=== PATIENT | female | born 1990 | race African-American/Black ===

== ENCOUNTER 2017-06-11 15:22 | Emergency (ER) | payer OTHER ==
[2017-06-11 15:36] LABS: URINE HCG POC HCG POSITIVE (Negative)
[2017-06-11 15:59] LABS: ADD MAN DIFF? NO
[2017-06-11] MEDS ORDERED: MORPHINE SULFATE 2 MG/ML DISP.SYRIN. IV/SQ (16:00)
[2017-06-11 16:07] LABS: BASO # 0.1 x10^3/uL (0.0-0.2); BASO % 1 % (0-3); EOS % 0 % (0-3); HEMATOCRIT 35.8 % (36.0-47.0); HEMOGLOBIN 11.8 g/dL (12.0-15.5); LYMPH # 2.3 x10^3/uL (1.0-4.8); LYMPH % 18 % (24-48); MEAN CORPUSCULAR HEMOGLOBIN 28 pg (25-35); MEAN CORPUSCULAR HGB CONC 33 g/dL (31-37); MEAN CORPUSCULAR VOLUME 85 fL (79-100); MONO % 7 % (0-9); NEUT % 74 % (31-73); PLATELET COUNT 270 x10^3/uL (140-400); RED BLOOD COUNT 4.23 x10^6/uL (3.50-5.40); RED CELL DISTRIBUTION WIDTH 16.3 % (11.5-14.5); WHITE BLOOD COUNT 12.9 x10^3/uL (4.0-11.0)
[2017-06-11 16:09] LABS: BILIRUBIN,URINE NEGATIVE (NEG); GLUCOSE,URINE NEGATIVE (NEG); NITRITE,URINE NEGATIVE (NEG); PROTEIN,URINE NEGATIVE (NEG-TRACE); UROBILINOGEN,URINE 0.2 mg/dL (0.2 mg/dL)
[2017-06-11 16:14] LABS: BACTERIA,URINE MODERATE /HPF (0-FEW); RBC,URINE 0 /HPF (0-2); SQUAMOUS EPITHELIAL CELL,UR MANY /LPF; WBC,URINE RARE /HPF (0-4)
[2017-06-11 16:16] LABS: PARTIAL THROMBOPLASTIN TIME 26 SEC (24-38)
[2017-06-11 16:18] LABS: ANION GAP 12 (6-14); BLOOD UREA NITROGEN 4 mg/dL (7-20); CALCIUM 8.8 mg/dL (8.5-10.1); CARBON DIOXIDE 27 mmol/L (21-32); CHLORIDE 98 mmol/L (98-107); CREATININE 0.6 mg/dL (0.6-1.0); GFR 147.4; GLUCOSE 85 mg/dL (70-99); POTASSIUM 3.8 mmol/L (3.5-5.1); SODIUM 137 mmol/L (136-145)
[2017-06-11] MEDS: IV NORMAL SALINE 1000ML BAG 1,000 ML IV (16:20)
[2017-06-11] MEDS: ONDANSETRON PF 4 MG/2 ML VIAL. IV (16:21)
[2017-06-11 16:23] LABS: ALBUMIN 3.8 g/dL (3.4-5.0); ALK PHOS 51 U/L (46-116); ALT (SGPT) 19 U/L (14-59); AST (SGOT) 17 U/L (15-37); DIRECT BILIRUBIN 0.1 mg/dL (0.0-0.2); TOTAL BILIRUBIN 0.3 mg/dL (0.2-1.0); TOTAL PROTEIN 8.4 g/dL (6.4-8.2)
[2017-06-11 16:32] LABS: CREATINE KINASE 97 U/L (26-192)
[2017-06-11 16:33] LABS: CKMB INDEX 0.5 % (0-4); CKMB MASS < 0.5 ng/mL (0.0-3.6)
== END 2017-06-11 18:10 | disposition home or self-care (01) ==
LOC: ER 15:22
DX: O21.9 Vomiting of pregnancy, unspecified (principal); O99.611 Diseases of the digestive system complicating pregnancy, first trimester; R10.13 Epigastric pain; R10.31 Right lower quadrant pain; Z3A.08 8 weeks gestation of pregnancy; Z88.1 Allergy status to other antibiotic agents
CPT/HCPCS: 36415; 76801; 80048; 80076; 81001; 81025; 82553; 83690; 84702; 85025; 85610; 85730; 87086; 96361; 96374; 99285-25; J2405; J7030

== ENCOUNTER → 2017-08-14 | Outpatient (CLI) | payer OTHER | END | disposition home or self-care (01) | LOC: US 15:39 | DX: O09.92 Supervision of high risk pregnancy, unspecified, second trimester (principal); O26.842 Uterine size-date discrepancy, second trimester; Z3A.18 18 weeks gestation of pregnancy | CPT/HCPCS: 76805 ==

== ENCOUNTER → 2017-09-24 | Outpatient (CLI) | payer OTHER | END | disposition home or self-care (01) | LOC: ECHO 13:02 | DX: O26.892 Other specified pregnancy related conditions, second trimester (principal); R06.00 Dyspnea, unspecified; Z3A.24 24 weeks gestation of pregnancy | CPT/HCPCS: 93306 ==